=== PATIENT | female | born 1995 | race Caucasian/White ===

== ENCOUNTER → 2016-05-11 | Outpatient (CLI) | payer BC ==
[2016-05-11 12:37] LABS: CHLORIDE,CL 107 mmol/L (98-110); SODIUM,NA 140 mmol/L (136-146)
== END ==
LOC: MW.LAB 11:52
PROVIDERS: ATTEND Internal Medicine Endocrinology, Diabetes & Metabolism
DX: E03.9 Hypothyroidism, unspecified (principal)
CPT/HCPCS: 36415; 80053; 84443

== ENCOUNTER 2018-04-12 17:14 | Emergency (ER) | payer BC ==
[2018-04-12] MEDS ORDERED: Ketorolac 60 MG/2 ML SDV IM ONE (18:14)
--- NOTE | 2018-04-12 18:26 | EDM.PDOC ---
ED HPI GENERAL MEDICAL PROBLEM - General Chief Complaint: Lower Extremity Injury/Pain Stated Complaint: FELL AND HURT FOOT Time Seen by Provider: 04/12/18 17:19 Source of Information: Reports: Patient History Limitations: Reports: No Limitations - History of Present Illness INITIAL COMMENTS - FREE TEXT/NARRATIVE: Presents reporting a one hour prior to arrival she fell down some steps and inverted her right foot and now she has pain. She is able to bear weight and ambulate with the foot. Right Foot Pain Score (Numeric/FACES): 4 - Related Data Allergies Allergy/AdvReac Type Severity Reaction Status Date / Time Penicillins Allergy Rash Verified 04/12/18 17:42 Home Meds: Home Meds Levothyroxine [Synthroid] 88 mcg PO ACBREAKFAST 04/12/18 [History] metFORMIN [Glucophage] 1,000 mg PO DAILY 04/12/18 [History] Past Medical History Cardiovascular History: Reports: None Respiratory History: Reports: None Gastrointestinal History: Reports: None Genitourinary History: Reports: None ROLLER TURNER History: Reports: None Musculoskeletal History: Reports: None Neurological History: Reports: None Psychiatric History: Reports: None Endocrine/Metabolic History: Reports: Hypothyroidism Hematologic History: Reports: None Immunologic History: Reports: None Oncologic (Cancer) History: Reports: None Dermatologic History: Reports: None - Infectious Disease History Infectious Disease History: Reports: None - Past Surgical History Head Surgeries/Procedures: Reports: None HEENT Surgical History: Reports: Myringotomy w Tube(s), Oral Surgery Social & Family History - Family History Family Medical History: Noncontributory - Tobacco Use Smoking Status *Q: Never Smoker Second Hand Smoke Exposure: No - Caffeine Use Caffeine Use: Reports: None - Recreational Drug Use Recreational Drug Use: No Review of Systems - Review of Systems Review Of Systems: ROS reveals no pertinent complaints other than HPI. ED EXAM, GENERAL - Physical Exam Exam: See Below General Appearance: Alert, No Apparent Distress Nose: Normal Inspection Head: Atraumatic, Normocephalic Respiratory/Chest: No Respiratory Distress Cardiovascular: Normal Peripheral Pulses Extremities: Other (Right ankle without erythema ecchymosis swelling deformity or crepitus mild tenderness lateral CMS intact distally strong pedal and posttibial pulses) Neurological: Alert, Oriented Psychiatric: Normal Affect, Normal Mood Skin Exam: Warm, Dry, Intact, Normal Color, No Rash Course - Vital Signs Last Recorded V/S: Last Vital Signs Temp 36.6 C 04/12/18 17:42 Pulse 101 H 04/12/18 17:42 Resp 16 04/12/18 17:42 BP 147/80 H 04/12/18 17:42 Pulse Ox 100 04/12/18 17:42 - Orders/Labs/Meds Orders: Active Orders 24 hr Category Date Time Status Ankle Min 3V Rt [CR] Stat Exams 04/12/18 17:50 Ordered Departure - Departure Time of Disposition: 18:51 Disposition: Home, Self-Care 01 Condition: Good Clinical Impression: Ankle sprain Qualifiers: Encounter type: initial encounter Involved ligament of ankle: unspecified ligament Laterality: right Qualified Code(s): S93.401A - Sprain of unspecified ligament of right ankle, initial encounter - Discharge Information Referrals: Edna Collins, [employer] CH[employer] TECHNICIAN [Primary Care Provider] - Additional Instructions: 1. Elevate right foot. Cool packs 20 minutes every 3-4 hours as needed 2. CRISTINA Wrap right ankle 3. Aleve 2 tabs morning and night or ibuprofen 2-3 tabs 3 times a day as needed for discomfort 4. Follow-up in the clinic - My Orders Last 24 Hours: My Active Orders 04/12/18 17:50 Ankle Min 3V Rt [CR] Stat - Assessment/Plan Last 24 Hours: My Active Orders 04/12/18 17:50 Ankle Min 3V Rt [CR] Stat
--- NOTE | 2018-04-12 18:39 | CR ---
INDICATION: Trauma TECHNIQUE: Three views right ankle COMPARISON: None FINDINGS: Bones: Alignment is normal. No fractures. Small dorsal calcaneal spur Joint spaces: Unremarkable. Soft tissues: Unremarkable. IMPRESSION: Negative. Dictated by Abebe Delgadillo MD @ 04/12/2018 6:39:17 PM Dictated by: Abebe Delgadillo MD @ 04/12/2018 18:39:21 (Electronically Signed)
== END 2018-04-12 19:17 | disposition home or self-care (01) ==
LOC: MW.ED 17:14
DX: S93.401A Sprain of unspecified ligament of right ankle, initial encounter (principal); Z88.0 Allergy status to penicillin; Z79.84 Long term (current) use of oral hypoglycemic drugs; E03.9 Hypothyroidism, unspecified; X50.1XXA Overexertion from prolonged static or awkward postures, initial encounter
CPT/HCPCS: 73610-26-RT; 73610-RT; 99282; 99283

== ENCOUNTER 2022-12-18 14:16 | Observation (INO) | payer OTHER ==
[2022-12-18] MEDS ORDERED: Sodium Chloride 0.9% 1,000 ML IV ONE (14:40)
[2022-12-18 14:55] LABS: BASOPHILS ABSOLUTE AUTO 0.06 K/uL (0.00-0.20); BASOPHILS PERCENT AUTO 0.6 % (0.0-1.0); EOSINOPHILS ABSOLUTE AUTO 0.09 K/uL (0.00-0.45); EOSINOPHILS PERCENT AUTO 0.8 % (0.0-6.0); HEMATOCRIT 42.2 % (37.0-47.0); HEMOGLOBIN 14.4 g/dL (12.0-16.0); IMMATURE GRAN ABSOLUTE AUTO 0.03 K/uL (0.00-0.05); IMMATURE GRAN PERCENT AUTO 0.3 % (0.0-0.4); LYMPHOCYTES ABSOLUTE AUTO 2.57 K/uL (1.00-4.80); LYMPHOCYTES PERCENT AUTO 24.2 % (24.0-44.0); MEAN CORPUSCULAR HEMOGLOBIN 28.3 pg (28.0-32.0); MEAN CORPUSCULAR HGB CONC 34.1 g/dL (32.0-36.0); MEAN CORPUSCULAR VOLUME 83.1 fL (83.0-99.0); MEAN PLATELET VOLUME 10.1 fL (9.4-12.3); MONOCYTES ABSOLUTE AUTO 0.69 K/uL (0.00-0.80); MONOCYTES PERCENT AUTO 6.5 % (0.0-8.0); NEUTROPHILS ABSOLUTE AUTO 7.19 K/uL (1.80-7.70); NEUTROPHILS PERCENT AUTO 67.6 % (41.0-71.0); PLATELET COUNT,PLT 387 K/uL (150-400); RED BLOOD CELL COUNT 5.08 M/uL (4.10-5.30); WHITE BLOOD CELL COUNT,WBC 10.63 K/uL (3.9-11.3)
[2022-12-18 15:27] LABS: A/G RATIO 0.8 (0.9-1.6); ALANINE AMINOTRANSFERASE,ALT 37 IU/L (14-63); ALKALINE PHOSPHATASE 78 U/L (46-116); ASPARTATE AMNIOTRANSFERASE,AST 29 IU/L (15-37); BILIRUBIN TOTAL 0.3 mg/dL (0.2-1.0); BLOOD UREA NITROGEN,BUN 13 mg/dL (7.0-18.0); CALCIUM 9.4 mg/dL (8.5-10.1); CARBON DIOXIDE,CO2 22.7 mmol/L (21.0-32.0); CHLORIDE,CL 99 mmol/L (98-107); CREATININE 0.9 mg/dL (0.6-1.0); EST CRCL DRUG DOSING (CG) 76.98 mL/min; GLUCOSE RANDOM 90 mg/dL (74-106); LIPASE 38 U/L (16-77); POTASSIUM,K 3.7 mmol/L (3.5-5.1); PROTEIN TOTAL,TP 8.8 g/dL (6.4-8.2); SODIUM,NA 136 mmol/L (136-145); TSH ULTRASENSITIVE 0.43 uIU/mL (0.36-3.74)
[2022-12-18 15:29] LABS: ESTIMATED GFR 89 mL/min (>60)
[2022-12-18] MEDS ORDERED: Ondansetron 4 MG/2 ML SDV IVPUSH PRN (18:25)
[2022-12-18] MEDS ORDERED: Acetaminophen 325 MG Tab PO PRN (18:25)
[2022-12-18] MEDS ORDERED: 50% Dextrose in Water 50 ML Syringe IVPUSH PRN (18:28)
[2022-12-18] MEDS ORDERED: Glucagon,Human Recombinant 1 MG Vial IM PRN (18:28)
[2022-12-18 18:49] LABS: MAGNESIUM 1.8 mg/dL (1.8-2.4); PHOSPHORUS 4.2 mg/dL (2.6-4.7)
[2022-12-18 19:40] LABS: HEMOGLOBIN A1C 5.2 %
[2022-12-19] MEDS ORDERED: Levothyroxine 125 MCG Tab PO SCH (07:30)
[2022-12-19 07:32] LABS: CALCIUM 8.9 mg/dL (8.5-10.1); CARBON DIOXIDE,CO2 25.7 mmol/L (21.0-32.0); EST CRCL DRUG DOSING (CG) 69.28 mL/min; POTASSIUM,K 4.1 mmol/L (3.5-5.1)
[2022-12-19] MEDS ORDERED: LORazepam 0.5 MG Tab PO ONE (07:42)
[2022-12-19 07:53] LABS: HEMATOCRIT 39.6 % (37.0-47.0); HEMOGLOBIN 13.3 g/dL (12.0-16.0); MEAN CORPUSCULAR HEMOGLOBIN 28.5 pg (28.0-32.0); MEAN CORPUSCULAR HGB CONC 33.6 g/dL (32.0-36.0); MEAN PLATELET VOLUME 10.5 fL (9.4-12.3); PLATELET COUNT,PLT 337 K/uL (150-400); RED BLOOD CELL COUNT 4.66 M/uL (4.10-5.30); WHITE BLOOD CELL COUNT,WBC 9.87 K/uL (3.9-11.3)
[2022-12-19 07:56] LABS: BASOPHILS ABSOLUTE AUTO 0.06 K/uL (0.00-0.20); BASOPHILS PERCENT AUTO 0.6 % (0.0-1.0); EOSINOPHILS ABSOLUTE AUTO 0.14 K/uL (0.00-0.45); EOSINOPHILS PERCENT AUTO 1.4 % (0.0-6.0); IMMATURE GRAN ABSOLUTE AUTO 0.04 K/uL (0.00-0.05); IMMATURE GRAN PERCENT AUTO 0.4 % (0.0-0.4); LYMPHOCYTES ABSOLUTE AUTO 3.12 K/uL (1.00-4.80); LYMPHOCYTES PERCENT AUTO 31.6 % (24.0-44.0); MONOCYTES ABSOLUTE AUTO 0.81 K/uL (0.00-0.80); MONOCYTES PERCENT AUTO 8.2 % (0.0-8.0); NEUTROPHILS PERCENT AUTO 57.8 % (41.0-71.0)
[2022-12-19] MEDS: Insulin Aspart 100 Units/ML 3 ML Pen SUBCUT SCH ×3 (07:58→17:22)
[2022-12-19 09:42] LABS: AMPHETAMINES SCREEN, URINE NEGATIVE (CUTOFF=500); BARBITURATE SCREEN,URINE NEGATIVE (CUTOFF=200); BENZODIAZEPINES SCREEN,URINE NEGATIVE (CUTOFF=150); BUPRENORPHINE SCREEN,URINE NEGATIVE (CUTOFF=10); METHADONE SCREEN, URINE NEGATIVE (CUTOFF=200); METHAMPHETAMINES SCREEN, URINE NEGATIVE (CUTOFF=500); OXYCODONE SCREEN,URINE NEGATIVE (CUT0FF=100); PCP SCREEN,URINE NEGATIVE (CUTOFF=25); PROPOXYPHENE SCREEN,URINE NEGATIVE (CUTOFF=300); THC SCREEN,URINE 20 NG/ML NEGATIVE (CUTOFF=50)
[2022-12-19] MEDS ORDERED: Metoprolol Tartrate 5 MG/5 ML SDV IVPUSH ONE (11:41)
[2022-12-19 15:20] LABS: APPEARANCE,URINE CLEAR; BILIRUBIN,URINE NEGATIVE (NEGATIVE); COLOR,URINE YELLOW; GLUCOSE,URINE NEGATIVE (NEGATIVE); KETONES,URINE NEGATIVE (NEGATIVE); LEUKOCYTE ESTERASE,URINE SMALL (NEGATIVE); NITRITE,URINE NEGATIVE (NEGATIVE); OCCULT BLOOD,URINE TRACE-INTACT (NEGATIVE); PROTEIN,URINE NEGATIVE (NEGATIVE); UROBILINOGEN,URINE 0.2 EU/dL (<2.0)
[2022-12-19 15:27] LABS: BACTERIA,URINE FEW (NEGATIVE); EPITHELIAL CELLS,URINE FEW (NONE-FEW); MUCUS,URINE LIGHT (NONE-MOD); RBC,URINE NONE SEEN (0-2/HPF)
== END 2022-12-19 18:15 | disposition home or self-care (01) ==
LOC: MW.ED 14:16 → MW.MS 17:57
PROVIDERS: ADMIT Family Medicine; ATTEND Family Medicine
DX: R55 Syncope and collapse (principal); I10 Essential (primary) hypertension; E03.9 Hypothyroidism, unspecified; E28.2 Polycystic ovarian syndrome; E88.819 Insulin resistance, unspecified; R01.1 Cardiac murmur, unspecified; Z98.890 Other specified postprocedural states; Z79.890 Hormone replacement therapy; Z79.84 Long term (current) use of oral hypoglycemic drugs; Z79.899 Other long term (current) drug therapy; Z88.0 Allergy status to penicillin
CPT/HCPCS: 36415; 80048; 80053; 80305; 81001; 82947; 83036; 83690; 83735; 83880; 84100; 84439; 84443; 84484; 84703; 85025; 85379; 87086; 93005; 93246; 93306; 96360; 99285; A9270; J3490; J7030; 93010; 96361; 96374; 99284; G0378

== ENCOUNTER 2023-04-13 08:48 | Day surgery (SDC) | payer OTHER ==
[~2023-04-13 08:48] MED LIST: Sodium Chloride 0.9% 10 ML Syringe FLUSH PRN; Sodium Chloride 0.9% 2.5 ML Syringe FLUSH PRN; Sodium Chloride 0.9% 20 ML SDV IV PRN
[2023-04-13] MEDS ORDERED: Lactated Ringers 1,000 ML IV SCH (10:45)
[2023-04-13] MEDS ORDERED: fentaNYL 50 MCG/ML SDV IVPUSH PRN (11:08)
[2023-04-13] MEDS ORDERED: Metoclopramide 10 MG/2 ML SDV IVPUSH PRN (11:08)
[2023-04-13] MEDS ORDERED: Ondansetron 4 MG/2 ML SDV IVPUSH PRN (11:08)
[2023-04-13] MEDS ORDERED: Naloxone 0.4 MG/ML SDV IVPUSH PRN (11:08)
[2023-04-13] MEDS ORDERED: droPERidol 5 MG/2 ML SDV IVPUSH PRN (11:08)
[2023-04-13] MEDS ORDERED: HYDROmorphone 1 MG/ML Syringe IVPUSH PRN (11:08)
[2023-04-13] MEDS ORDERED: Albuterol 0.083% 2.5 MG/3 ML Neb Soln NEB PRN (11:08)
[2023-04-13] MEDS ORDERED: Morphine 2 MG/ML SYRINGE IVPUSH PRN (11:08)
[2023-04-13] MEDS ORDERED: fentaNYL 100 MCG/2 ML SDV ONE (11:09)
[2023-04-13] MEDS: Lactated Ringers 1,000 ML IV SCH (11:40)
[2023-04-13] MEDS: Clindamycin Phosphate in D5W 600 MG in Premix Bag 1 BAG IV ONE (12:15)
[2023-04-13] MEDS: Clindamycin Phosphate in D5W 300 MG in Premix Bag 1 BAG IV ONE (12:35)
== END 2023-04-13 13:17 | disposition home or self-care (01) ==
LOC: MW.SDS 08:48
PROVIDERS: ATTEND Obstetrics & Gynecology
DX: N83.202 Unspecified ovarian cyst, left side (principal); I10 Essential (primary) hypertension; E06.3 Autoimmune thyroiditis; F32.A Depression, unspecified; F41.9 Anxiety disorder, unspecified; E66.9 Obesity, unspecified; Z79.890 Hormone replacement therapy; Z79.899 Other long term (current) drug therapy; Z88.0 Allergy status to penicillin
CPT/HCPCS: 58662; J0736; J3010; J7030; J7120; 00840